=== PATIENT | female | born 1970 | race African-American/Black ===

== ENCOUNTER 2021-11-15 13:01 | Emergency (ER) | payer OTHER ==
[~2021-11-15] VITALS: Ht 177.8 cm; Wt 65.4 kg
[2021-11-15] MEDS ORDERED: CYCL5TAB PO (13:19)
[2021-11-15] MEDS ORDERED: PROG1CAP8 PO (13:19)
[2021-11-15] MEDS ORDERED: FERR325T82 PO (13:19)
[2021-11-15] MEDS ORDERED: FIOR1CAP PO (13:19)
[2021-11-15 17:41] LABS: BASO # 0.1 10^3/uL (0.0-0.2); BASO % 0.9 % (0.0-1.0); EOS # 0.2 10^3/uL (0.0-0.5); EOS % 3.9 % (0.0-3.0); HEMATOCRIT 38.1 % (36.0-47.0); HEMOGLOBIN 10.7 g/dl (12.0-15.5); LYMPH # 2.3 10^3/uL (1.5-5.0); LYMPH % 42.6 % (24.0-44.0); MEAN CORPUSCULAR HEMOGLOBIN 21.2 pg (27.0-33.0); MEAN CORPUSCULAR HGB CONC 28.1 g/dl (32.0-36.5); MEAN CORPUSCULAR VOLUME 75.6 fl (80.0-96.0); MONO # 0.7 10^3/uL (0.0-0.8); MONO % 13.3 % (2.0-8.0); NEUTROPHILS # 2.1 10^3/uL (1.5-8.5); NEUTROPHILS % 39.3 % (36.0-66.0); PLATELET COUNT, AUTOMATED 339 10^3/uL (150-450); RED BLOOD COUNT 5.04 10^6/uL (4.00-5.40); WHITE BLOOD COUNT 5.4 10^3/uL (4.0-10.0)
[2021-11-15 19:38] LABS: BLOOD UREA NITROGEN 11 MG/DL (7-18); CALCIUM LEVEL 9.2 MG/DL (8.5-10.1); CARBON DIOXIDE LEVEL 26 MEQ/L (21-32); CHLORIDE LEVEL 105 MEQ/L (98-107); CREATININE FOR GFR 0.66 MG/DL (0.55-1.30); GLOMERULAR FILTRATION RATE > 60.0 (>51); GLUCOSE, FASTING 95 MG/DL (70-100); POTASSIUM SERUM 4.3 MEQ/L (3.5-5.1); SODIUM LEVEL 138 MEQ/L (136-145)
[2021-11-15 19:47] LABS: RSV AMPLIFICATION NEGATIVE (NEGATIVE)
[2021-11-15] MEDS ORDERED: CONJUGATED ESTROGENS 25 MG VIAL (J1410) IV ONE (20:25)
[2021-11-15] MEDS ORDERED: TRANEXAMIC ACID INJection 1,000 MG in NS 100 ML IV ONE (21:30)
[2021-11-15] MEDS ORDERED: TRAN650T PO (23:01)
[2021-11-15 23:15] VITALS: BP 136/63
== END 2021-11-15 23:16 | disposition home or self-care (01) ==
LOC: M ED 13:01
DX: D25.9 Leiomyoma of uterus, unspecified (principal); N92.0 Excessive and frequent menstruation with regular cycle; D64.9 Anemia, unspecified; G43.909 Migraine, unspecified, not intractable, without status migrainosus; M54.50 Low back pain, unspecified; Z79.899 Other long term (current) drug therapy

== ENCOUNTER → 2022-03-28 | Outpatient (REF) | payer OTHER ==
[~2022-03-28] MED LIST: CYCL5TAB PO; FERR325T82 PO; FIOR1CAP PO; HYDR50TA70; NAPR-885 PO; PRIL20TA2; PROG1CAP8 PO; TRAN650T PO; VIBE75TA
[2022-03-28 14:49] LABS: APPEARANCE, URINE MANUAL CLEAR (CLEAR); COLOR, URINE MANUAL YELLOW (YELLOW)
[2022-03-28 14:51] LABS: BILIRUBIN, URINE MANUAL NEGATIVE (NEGATIVE); BLOOD URINE MANUAL NEGATIVE (NEGATIVE); GLUCOSE, URINE (UA) MANUAL NEGATIVE (NEGATIVE); KETONE, URINE MANUAL NEGATIVE (NEGATIVE); LEUKOCYTE ESTERASE, URINE MAN NEGATIVE (NEGATIVE); NITRITE, URINE MANUAL NEGATIVE (NEGATIVE); PROTEIN, URINE MANUAL NEGATIVE (NEGATIVE); UROBILINOGEN, URINE MANUAL NORMAL (NORMAL)
== END ==
LOC: M SMT 12:47
PROVIDERS: ATTEND Physician Assistant
DX: N32.81 Overactive bladder (principal)

== ENCOUNTER → 2022-03-28 | Outpatient (CLI) | payer OTHER ==
[2022-03-28 17:51] LABS: FOLATE 12.39 NG/ML (>5.4)
[2022-04-06 01:06] LABS: VITAMIN B1 LEVEL WHOLE BLOOD 98.7 nmol/L (66.5-200.0); VITAMIN B6,PYRIDOXAL PHOSPHATE 7.7 ug/L (3.4-65.2); VITAMIN E(ALPHA TOCOPHEROL) 10.5 mg/L (7.0-25.1); VITAMIN E(GAMMA TOCOPHEROL) 0.8 mg/L (0.5-5.5)
== END ==
LOC: M PLALAB 14:21
PROVIDERS: ATTEND Psychiatry & Neurology Neurology
DX: E53.8 Deficiency of other specified B group vitamins (principal)
CPT/HCPCS: 36415; 51798; 81002; 82607; 82746; 84207; 84425; 84446; 87086; G0463

== ENCOUNTER 2022-07-30 12:51 | Day surgery (SDC) | payer OTHER ==
[~2022-07-30] VITALS: Ht 177.8 cm; Wt 83.0 kg
[~2022-07-30 12:51] MED LIST changes: -HYDR50TA70; +HYDR50TA70 PO; +NS 1,000 ML IV ONE; -PRIL20TA2; +PRIL20TA2 PO; -VIBE75TA; +VIBE75TA PO
[2022-07-30] MEDS ORDERED: propofoL 200 MG/20 ML VIAL As Ordered ONE (13:41)
[2022-07-30] MEDS ORDERED: LIDOCAINE 2% 100MG/5ML SDV (FOR ANES.) As Ordered ONE (13:41)
[2022-07-30] MEDS ORDERED: fentaNYL 100 MCG/2 ML INJECTION As Ordered ONE (13:42)
[2022-07-30 14:47] VITALS: BP 92/53
== END 2022-07-30 15:18 | disposition home or self-care (01) ==
LOC: M OPP 12:51
PROVIDERS: ATTEND Internal Medicine Gastroenterology
DX: K64.8 Other hemorrhoids (principal); R12 Heartburn; K22.89 Other specified disease of esophagus; K31.89 Other diseases of stomach and duodenum; Z80.0 Family history of malignant neoplasm of digestive organs
CPT/HCPCS: 43235; 45378; J3010